=== PATIENT | female | born 1995 | race Caucasian/White ===

== ENCOUNTER → 2017-01-05 | Outpatient (CLI) | payer OTHER ==
[~2017-01-05] MED LIST: LORTAB 5/3251 TAB PO; MULTIVITAMIN1 TA2 PO; PROVENTIL0.09 MG/A1 IH
== END ==
LOC: LAB 17:13
DX: Z34.80 Encounter for supervision of other normal pregnancy, unspecified trimester (principal)

== ENCOUNTER 2017-02-14 23:01 | Emergency (ER) | payer OTHER ==
[~2017-02-14] VITALS: Ht 154.9 cm; Wt 60.3 kg
[~2017-02-14 23:01] MED LIST changes: +PRENATAL PLUS1 TA1 PO
--- NOTE | 2017-02-14 23:25 | Emergency Room Report ---
History of Present Illness Time Seen by 393Florencia Presenting Problem in Triage Pt arrived:Walked Presenting Problem:REPORTS VAGINAL 2 WEEKS AGO. 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 N Clinical Suspician of Infection? N Mental Status: 1 - Regular (Normal Baseline) Sepsis Risk:Low Sepsis Risk Have you (or family members/close friends) recently traveled outside the [place]? N If Yes, where/when: Have you had exposure to infectious disease within the past month? N TB? Other? Specify: Source patient, RN notes reviewed, family, old records Exam Limitations no limitations Comment pt with spont vag del 2 weeks ago and now has tender area on perineum and some drainage - no fever or abd pain and no other c/o - no vomiting Cardiac Chest Pain Chest pain indicative of cardiac No Timing/Duration this evening Severity moderate ALLERGIES Coded Allergies: Sulfa (Sulfonamide Antibiotics) (Intermediate, I-HIVES 10/30/15) Home Medications Reported Medications MULTIVIT-MIN W/FE-FA ( Multivitamin Tablet) 1 TAB PO DAILY History Medical History General CAD? No Angina: No UT: No Hypertension? No Hyperlipidemia? No CHF? No DVT? No PE? No COPD? No Asthma? Yes Anemia? No GERD? No Gastric ulcers? No GI Bleed? No Hernia? No Thyroid Problems? No Hypothyroidism? No CVA? No Seizures? No Diabetes? No Renal Insuffiency? No End Stage Renal Disease? No UTI? No Stones? No BPH? No GB Disease: No Nephritic Syndrome? No Asplenia? No Hepatitis? No Sickle Cell Disease? No Arthritis? No Migraines? No Cataracts? No Glaucoma? No MRSA? No HIV? No TB? No Anxiety? No Depression? No Cancer? No More? 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 Respiratory denies cough, denies shortness of breath Cardiovascular denies chest pain, denies syncope Gastrointestinal denies abdominal pain, denies diarrhea, denies vomiting Genitourinary see HPI. denies: abnormal vaginal bleeding, dysuria, frequency, hesitancy, hematuria. Musculoskeletal denies joint pain, denies neck pain Skin denies rash Psychiatric/Neurological denies headache, denies seizure Physical Exam Vital Signs Vital Signs Date Time Temp Pulse Resp B/P Pulse O2 O2 Flow FiO2 Ox Delivery Rate 02/14 2306 98.6 99 18 120/82 99 - WBC >12,000 or <4,000 or 10% bands? 2 or more SIRS Criteria Met? B/P:120/82 MAP:94 Creatinine >2.0? UA output<0.5ml/kg/hr for 2 hrs? Platelet count >100,000? Lactate >2.0mmol/1? INR >1.2 or PTT > than 60 sec? Evidence of Organ Dysfunction? Provider documented clinical suspician of infection? N Sepsis Criteria Count: 1 Sepsis Risk: Low Sepsis Risk General Appearance no apparent distress Eye Exam - bilateral eye PERRL, bilateral eye EOMI Ear, Nose, Throat normal ENT inspection Neck supple Respiratory Status No: respiratory distress. Cardiovascular regular rate/rhythm, no murmur Peripheral Pulses Pulses normal Yes Gastrointestinal soft Extremities normal inspection Strength 4 Upper Ext (L), 4 Upper Ext (R), 4 Lower Ext (L), 4 Lower Ext (R) Pelvic tender perineal area with no def abscess and has some opening from sutures Nurse present during exam? Yes Neurologic alert, production or plant engineer II-XII nml as tested Reflexes Reflexes normal No Mental status normal mood/affect Skin as above Medical Decision Making LABS/Meds/Orders Pt receiving controlled substance in ED? No Results/Orders Laboratory Tests 02/14/17 2330: Sodium 140, Potassium 3.5, Chloride 105, Carbon Dioxide 24, BUN 11, Creatinine 0.7, Estimated Creat Clear 120, Estimated GFR (MDRD) 105, Glucose 98, Calcium 9.0, Total Bilirubin 0.3, AST 15, ALT 10 L, Alkaline Phosphatase 130 H, Total Protein 7.8, Albumin 3.3 L, Globulin 4.5 H, Albumin/Globulin Ratio 0.7 L, WBC 12.1 H, RBC 3.86 L, Hgb 11.1 L, Hct 33.3 L, MCV 86.1, RDW 12.2, Plt Count 440 H, MPV 7.1 L, Gran % 55.8, Gran # 6.7, Lymphocytes % 37.2, Monocytes % 2.8 , Eosinophils % 3.3, Basophils % 0.9, Lymphocytes # 4.5, Monocytes # 0.3, Eosinophils # 0.4, Basophils # 0.1, PUBS MCHC 33.5, ESR Pending, MCH 28.8 02/14/172320: Urine Color YELLOW, Urine Appearance CLEAR, Urine pH 6.5, Ur Specific [place] 1.010, Urine Protein NEGATIVE, Urine Ketones NEGATIVE, Urine Blood TRACE-LYSED, Urine Nitrate NEGATIVE, Urine Bilirubin NEGATIVE, Urine Urobilinogen 0.2, Ur Leukocyte Esterase 2+ H, Urine RBC 3-5, Urine WBC 20-50, Urine Glucose NEGATIVE Current Medication Orders Sig/Matt Start time Last Medication Dose Route Stop Time Status Admin Sodium Chloride 10 ML PRN PRN 02/14 2330 AC IV 02/15 2320 Orders Procedure Date/time Status CULTURE, WOUND 02/14 235 Active CULTURE, URINE 02/14 2321 Active IV SALINE LOCK 02/15 2320 Active URINALYSIS/COMPLETE 02/15 2320 Complete SED RATE 02/15 2320 Active C-REACTIVE PROTEIN 02/15 2320 Complete COMPLETE METABOLIC PANEL 02/15 2320 Complete CBC WITH AUTO DIFF 02/15 2320 Active Departure Departure Time of Disposition 2358 Disposition DC Home or Self Care(routine) Clinical Impression Primary Impression: Cellulitis of perineum Secondary Impressions: UTI (urinary tract infection) Qualifiers: Urinary tract infection type: acute cystitis Hematuria presence: without hematuria Qualified Code: N30.00 - Acute cystitis without hematuria Condition STABLE Referrals Zechariah COHEN,Lars Arango discussed with dr gallegos Patient Instructions DI for Cellulitis -- Adult Additional Instructions use meds and keep appt for this wednesday Discharge Counseling Counseled pt/family regarding diagnosis, test results, medications/RX, follow up needs Prescriptions Current Visit Scripts CEPHALEXIN (Keflex 500MG Capsule) 500 MG PO Q8H #30 CAP ED Critical Care Critical Care No at 0012
[2017-02-14 23:28] LABS: URINE BILIRUBIN - DIPSTICK NEGATIVE (NEG); URINE BLOOD TRACE-LYSED (NEG)
[2017-02-14 23:44] LABS: HEMOGLOBIN 11.1 g/dL (12.2-16.2); LYMPH # 4.5 K/mm3 (0.7-4.5); LYMPH % 37.2 % (10-50.0)
[2017-02-15] MEDS ORDERED: KEFLEX 500MG.500 MG PO (00:07)
[2017-02-15 01:01] VITALS: BP 109/8
== END 2017-02-15 01:02 | disposition home or self-care (01) ==
LOC: ER 23:01
PROVIDERS: Emergency Medicine
DX: L03.315 Cellulitis of perineum (principal); N30.00 Acute cystitis without hematuria; Z88.2 Allergy status to sulfonamides; J45.909 Unspecified asthma, uncomplicated; F17.210 Nicotine dependence, cigarettes, uncomplicated